=== PATIENT | female | born 1975 | race Caucasian/White ===

== ENCOUNTER → 2018-09-07 | Outpatient (CLI) | payer OTHER ==
--- NOTE | 2018-09-07 21:01 | US ---
EXAM DESCRIPTION: Breast,Right: Ultrasound CLINICAL HISTORY: 43 yearsFemaleBREAST LUMP. Upper outer quadrant anterior right breast. COMPARISON: Digital diagnostic tomosynthesis bilateral breast on this visit. TECHNIQUE: Transcutaneous scanning of the right breast utilizing cooley-scale and Doppler modes. Scanning performed by the manager shell ; observed by Dr. Doe. FINDINGS: Scanning the upper outer quadrant of the right breast in the vicinity of nipple marker where mass is palpable. Heterogeneous fibroglandular and fatty echotexture in the region of interest. Approximately 7 cm from the nipple, a hypoechoic to anechoic mass with circumscribed and lobulated margins is visualized which contains a septation and possibly debris. Not vascular. Parallel orientation with predominantly posterior enhancement and edge shadowing. This mass measures approximately 12.7 x 8.6 x 4.7 mm. IMPRESSION: BI-RADS CATEGORY: 3 - PROBABLY BENIGN. Management: Short interval (6-month) digital diagnostic mammography of the right breast with targeted right breast ultrasound. The FINDINGS and the FOLLOW-UP plan were reviewed in person with the patient after the examination. Written communication explaining the IMPRESSION and FOLLOW-UP will be mailed to the patient and referring care provider. Electronically signed by: Adrian Doe MD 09/07/2018 8:59 PM [facility]
--- NOTE | 2018-09-08 21:11 | MAM ---
EXAM DESCRIPTION: 3D Diagnostic, Bilateral: Digital Mammography CLINICAL HISTORY: 43 yearsFemaleRIGHT BREAST PAIN . No personal or family history of breast cancer. Childbirth. Premenopausal. No HRT. Lifetime risk of developing breast cancer (Tyrer-Cuzick model) percentage is 7.7. COMPARISON: 2-D digital bilateral screening mammography 01/02/2010. Targeted right breast ultrasound included with this examination.. TECHNIQUE: Bilateral CC LM MLO projection full-field images, digital mammographic tomosynthesis technique. CAD not utilized. FINDINGS: The breast parenchymal density pattern is: Heterogeneously dense breast tissue, which may obscure small masses. No skin thickening or nipple retraction . Densities fibroglandular tissues are in the lateral mid and posterior third bilaterally. Skin marker is visualized at the 8:30-9:00 position of the right breast approximately 7 cm from the nipple. Focal asymmetry versus mass density is noted in the breast region near the marker. Bilateral axillary lymph nodes. Intramammary lymph nodes in the left axillary tail. Intramammary lymph node in the medial right breast. ULTRASOUND: Scanning the upper outer quadrant of the right breast in the vicinity of nipple marker where mass is palpable. Heterogeneous fibroglandular and fatty echotexture in the region of interest. Approximately 7 cm from the nipple, a hypoechoic to anechoic mass with circumscribed and lobulated margins is visualized which contains a septation and possibly debris. Not vascular. Parallel orientation with predominantly posterior enhancement and edge shadowing. This mass measures approximately 12.7 x 8.6 x 4.7 mm. No distinct solid mass or simple cyst. No large calcifications or parenchymal edema. No overlying skin changes. Normal vascularity. IMPRESSION: BI-RADS CATEGORY: 3 - PROBABLY BENIGN. Management: Short interval (6-month) diagnostic digital right mammography and targeted right breast ultrasound of today's finding to document stability.. The FINDINGS and the FOLLOW-UP plan were reviewed in person with the patient after the examination. Written communication explaining the IMPRESSION and FOLLOW-UP will be mailed to the patient and referring care provider. Electronically signed by: Adrian Doe MD 09/08/2018 9:09 PM [employer]
== END ==
LOC: MAMMO 10:00
PROVIDERS: ATTEND Family Medicine
DX: N64.4 Mastodynia (principal); N63.11 Unspecified lump in the right breast, upper outer quadrant
CPT/HCPCS: 76641; 77066; G0279

== ENCOUNTER → 2019-04-07 | Outpatient (CLI) | payer OTHER ==
--- NOTE | 2019-04-07 20:08 | US ---
EXAM DESCRIPTION: Diagnostic Mammo,Right (accession [id number]), Breast,Right (accession [id number]): Ultrasound CLINICAL HISTORY: 43 yearsFemale6 MO FU RIGHT BREAST. Occasional lateral right breast pain. No personal history of breast cancer. Remote family history of breast and ovarian cancer. Childbirth. Premenopausal. No HRT. Lifetime risk of developing breast cancer(Tyrer-Cuzick model) is 7.7%. COMPARISON: Bilateral diagnostic digital breast tomosynthesis and targeted right breast ultrasound 09/07/2018. TECHNIQUE: Right LM, CC, and MLO projection full-field images, digital mammographic tomosynthesis technique. Right 2-D digital full-field MLO images. CAD not utilized. . Transcutaneous scanning of the right breast utilizing cooley-scale and Doppler modes. Scanning performed by the liquid center assembler and Dr. Doe. FINDINGS: Right breast parenchymal density pattern is: Heterogeneously dense breast tissue, which may obscure small masses. No skin thickening or nipple retraction focal asymmetry is noted at approximately the 9:00 sector, 7 cm from the nipple. There is also a mass density in the posterior third of the breast at the 4:30 clock position approximately 10 cm from the nipple. These appear stable since the prior study. Not associated with microcalcifications. Ultrasound: Scanning of the right breast at the 4:00 sector 2 cm from the nipple. Hypoechoic oval-shaped mass with echogenic margins circumscribed and central vascularity. Mixed posterior acoustic features. 8 by 7 mm. Most likely a lymph node. Scanning at the 4:00 position of the right breast 10 cm from the nipple hypoechoic mass with mostly circumscribed and microlobulated margins wider than tall orientation central posterior acoustic enhancement and edge shadowing measuring 9 x 7 mm. Most likely a lymph node. Circumscribed hypoechoic mass at the 9:00 position 10 cm from the nipple. Wider than tall orientation and no posterior features. Central echogenicity measuring 5 x 4 mm with no vascularity. Most likely a lymph node. Scanning in the region where elongated hypoechoic or anechoic mass was seen on the prior study; no similar lesion was identified. No dominant solid mass or distinct cyst. No parenchymal edema or large calcifications. No overlying skin changes. IMPRESSION: Benign findings probably lymph nodes right breast. ASSESSMENT: BI-RADS CATEGORY: 3 - PROBABLY BENIGN. Management: Short interval (6-month) follow-up bilateral diagnostic breast mammography and targeted right breast ultrasound on or after August 2019. The FINDINGS and the FOLLOW-UP plan were reviewed in person with the patient after the examination. Written communication explaining the IMPRESSION and FOLLOW-UP will be mailed to the patient and referring care provider. Electronically signed by: Adrian Doe MD 04/07/2019 8:05 PM CDT
== END ==
LOC: US 08:00
PROVIDERS: ATTEND Family Medicine
DX: R92.8 Other abnormal and inconclusive findings on diagnostic imaging of breast (principal)